=== PATIENT | female | born 1935 | race Caucasian/White ===

== ENCOUNTER 2016-11-10 22:12 | Emergency (ER) | payer OTHER ==
[~2016-11-10] VITALS: Ht 160 cm; Wt 100.0 kg
[~2016-11-10 22:12] MED LIST: ASPI81TA82 PO; HYDR-2768 PO; LOSA100T PO; METO25 PO; RIVA20 PO; SIMV10 PO; SPIR25TA PO
[2016-11-10 22:18] VITALS: BP 116/82; PULSE 89; RESP 18; TEMP 97.8; O2SAT 100
[2016-11-10 22:21] VITALS: BP 116/82; PULSE 65; RESP 20; O2SAT 94
[2016-11-10] MEDS ORDERED: MORPHINE SULFATE 4 MG/ML INJ IV PUSH ONE (22:30)
[2016-11-10] MEDS ORDERED: SODIUM CHLORIDE 0.9% FLUSH 5 ML FLUSH IVF PRN (22:30)
[2016-11-10] MEDS ORDERED: TRAM50TA PO ×2 (22:34)
[2016-11-10] MEDS ORDERED: XARE15TA PO ×2 (22:34)
[2016-11-10] MEDS ORDERED: METO50TA PO ×2 (22:34)
[2016-11-10] MEDS ORDERED: SIMV10TA PO ×2 (22:34)
[2016-11-10] MEDS ORDERED: TIZA4CAP3 PO ×2 (22:34)
[2016-11-10] MEDS ORDERED: PRED5TAB PO ×2 (22:34)
[2016-11-10] MEDS ORDERED: RANI150T PO ×2 (22:34)
[2016-11-10] MEDS ORDERED: ALLO100T PO ×2 (22:34)
[2016-11-10 23:13] LABS: AUTOMATED NEUTROPHIL # 7.6 TH/MM3 (1.8-7.7); BASOPHIL % 0.4 % (0.0-2.0); EOSINOPHIL % 0.1 % (0.0-4.0); HEMATOCRIT 37.8 % (35.0-46.0); HEMO FLAGS DIFF FINAL; LYMPH % 12.4 % (9.0-44.0); LYMPHOCYTE # 1.2 TH/MM3 (1.0-4.8); MEAN CELL VOLUME 85.3 FL (80.0-100.0); MEAN CORPUSCULAR HEMOGLOBIN 28.5 PG (27.0-34.0); MEAN CORPUSCULAR HGB CONC 33.4 % (32.0-36.0); MONO % 6.2 % (0.0-8.0); NEUT % 80.9 % (16.0-70.0); PLATELET COUNT 125 TH/MM3 (150-450); RED BLOOD COUNT 4.44 MIL/MM3 (4.00-5.30); WHITE BLOOD COUNT 9.4 TH/MM3 (4.0-11.0)
[2016-11-10 23:17] LABS: BACTERIA, URINE RARE /hpf; BLOOD, URINE TRACE (NEG); GLUCOSE,URINE NEG (NEG); KETONE, URINE NEG (NEG); NITRITE,URINE NEG (NEG); PH, URINE 6.5 (5.0-8.5); SQUAMOUS EPITHELIAL CELL URINE <1 /hpf (0-5); URINE COLOR YELLOW (YELLW/STRAW)
[2016-11-10 23:19] LABS: COMMENT (UR) CATH-CULTURE IND; CULTURE IF INDICATED CATH CULTURE IND
[2016-11-10 23:24] LABS: APTT (PATIENT) 32.6 SEC (24.3-30.1); INTERNATIONAL NORMALIZED RATIO 1.4 RATIO; PROTHROMBIN TIME - PATIENT 15.3 SEC (9.8-11.6)
[2016-11-10 23:30] LABS: ANION GAP 7 MEQ/L (5-15); AST (GOT) 57 U/L (15-37); BICARBONATE 28.6 MEQ/L (21.0-32.0); BLOOD UREA NITROGEN 24 MG/DL (7-18); CHLORIDE 100 MEQ/L (98-107); GLOMERULAR FILTRATION RATE 43 ML/MIN (>89); POTASSIUM 4.2 MEQ/L (3.5-5.1); SODIUM (NA) 136 MEQ/L (136-145)
[2016-11-10 23:33] LABS: ALKALINE PHOSPHATASE 79 U/L (45-117); ALT (GPT) 46 U/L (10-53); TOTAL BILIRUBIN ADULT 0.6 MG/DL (0.2-1.0)
--- NOTE | 2016-11-10 23:41 | RADRPT ---
EXAM DATE/TIME: 11/10/2016 23:23 [facility] COMPARISON: No previous studies available for comparison. INDICATIONS : Altered mental status. RADIATION DOSE: 65.08 CTDIvol (mGy) MEDICAL HISTORY : Hypertension. SURGICAL HISTORY : None. ENCOUNTER: Initial ACUITY: 1 day PAIN SCALE: 0/10 LOCATION: cranial TECHNIQUE: Multiple contiguous axial images were obtained of the head. Using automated exposure control and adj ustment of the mA and/or kV according to patient size, radiation dose was kept as low as reasonably a chievable to obtain optimal diagnostic quality images. FINDINGS: There is no evidence for intracranial hemorrhage, mass effect, mass lesions, or edema. The visualize d bony structures appear intact. Moderate degree of brain atrophy is seen. Moderate periventricular white matter changes are seen nonspecific mostly consistent with chronic small vessel ischemic change s. There are no signs of acute infarction for technique. CONCLUSION: Chronic and small vessel ischemic changes without any evidence for acute hemorrhage o r mass effect. Robin Stearns MD on November 10, 2016 at 23:38 Board Certified Radiologist. This report was verified electronically.
[2016-11-10] MEDS ORDERED: cefTRIAXone INJ 1,000 MG in SODIUM CHLORIDE 0.9% INJ 100 ML IV ONE (23:45)
--- NOTE | 2016-11-10 23:46 | RADRPT ---
EXAM DATE/TIME: 11/10/2016 23:26 [facility] COMPARISON: No previous studies available for comparison. INDICATIONS : Bilateral back pain. ORAL CONTRAST: No oral contrast ingested. RADIATION DOSE: 13.40 CTDIvol (mGy) MEDICAL HISTORY : Hypertension. SURGICAL HISTORY : Appendectomy. Hysterectomy.Kyphoplasty.bilateral hip replacement ENCOUNTER: Initial ACUITY: 1 day PAIN SCALE: 8/10 LOCATION: Bilateral Paraspinal TECHNIQUE: Volumetric scanning of the abdomen and pelvis was performed. Using automated exposure control and ad justment of the mA and/or kV according to patient size, radiation dose was kept as low as reasonably achievable to obtain optimal diagnostic quality images. FINDINGS: CT Abdomen: The liver, spleen, pancreas, left kidney, adrenals are unremarkable. There is no evidence for any appreciable pathological adenopathy, free fluid, or bowel obstruction. Approximate 4.9 cm s imple cyst is present in the right kidney. There are old healed rib fractures in the right lower ches t. The gallbladder demonstrates multiple stones without gallbladder wall thickening, or pericholecyst ic fluid. Chronic vascular calcifications are present involving the aorta, iliac arteries without any significant stenosis or aneurysmal dilatations for technique and the aorta measures almost 3 cm in m aximum diameter. Small umbilical fat herniation is identified without evidence of bowel herniation. CT pelvis: There is no evidence for mass, abscess formation, or any significant adenopathy within the pelvis. There are scattered diverticuli mainly in the sigmoid colon without definite signs of divert iculitis. Bilateral total hip arthroplasties are seen. CONCLUSION: Cholelithiasis, right renal cyst and chronic vascular calcifications. Robin Stearns MD on November 10, 2016 at 23:40 Board Certified Radiologist. This report was verified electronically.
--- NOTE | 2016-11-10 23:56 | PD ---
HPI Chief Complaint: Pain: Acute or Chronic Time Seen by Provider: 22:15 Travel History International Travel<30 days: No Contact w/Intl Traveler<30days: No Traveled to known affect area: No History of Present Illness HPI 81-year-old female brought in by ambulance from home for evaluation of altered mental status. The patient lives at home with her who is also 81 years old. The patient's children are present here and time he that throughout the day today the patient did not seem like herself. She has not taken any of her medications which is unusual for her. The patient is complaining of left flank and left lower back pain that radiates around to her left lower abdomen. She reports that this is chronic for her and she has had kyphoplasty on her lumbar spine in the past. No fevers. No vomiting. No urinary symptoms. PFSH Past Medical History Atrial Fibrillation: Yes Cancer: Yes (uterine) High Cholesterol: Yes Diminished Hearing: No Gout: Yes Hypertension: Yes Radiation Therapy: Yes Tetanus Vaccination: < 5 Years Influenza Vaccination: No Past Surgical History Appendectomy: Yes Eye Surgery: Yes (right implant) Hysterectomy: Yes Joint Replacement: Yes (two on left and one on right) Social History Alcohol Use: No Tobacco Use: No Substance Use: No Allergies-Medications (Allergen,Severity, Reaction): Coded Allergies: Shrimp (Unverified Allergy, Severe, Anaphylaxis, 11/10/16) Reported Meds & Prescriptions Reported Meds & Active Scripts Active Reported Tizanidine (Tizanidine HCl) 4 Mg Cap 4 Mg PO HS Metoprolol Tartrate 50 Mg Tab 50 Mg PO BID Simvastatin 10 Mg Tab 10 Mg PO DAILY Allopurinol 100 Mg Tab 100 Mg PO DAILY Tramadol (Tramadol HCl) 50 Mg Tab 100 Mg PO Q6-8HOURS PRN Ranitidine (Ranitidine HCl) 150 Mg Tab 150 Mg PO BID Xarelto (Rivaroxaban) 15 Mg Tab 15 Mg PO DAILY Prednisone 5 Mg Tab 5 Mg PO DAILY Review of Systems Except as stated in HPI: all other systems reviewed are Neg Physical Exam Narrative GENERAL: Well-developed, well-nourished, elderly-appearing female, awake, alert , no acute distress. SKIN: Warm and dry. No rash. HEAD: Atraumatic. Normocephalic. EYES: Pupils equal and round. No scleral icterus. No injection or drainage. ENT: Mucous membranes pink and moist. NECK: Trachea midline. No JVD. CARDIOVASCULAR: Regular rate and rhythm. Distal pulses brisk and equal bilaterally. RESPIRATORY: No accessory muscle use. Clear to auscultation. Breath sounds equal bilaterally. GASTROINTESTINAL: Abdomen soft, nondistended. Mild left mid and left lower quadrant tenderness without rebound or guarding. Rest of abdomen is soft and nontender. Normal bowel sounds. MUSCULOSKELETAL: No obvious deformities. No clubbing. No cyanosis. No edema. No midline vertebral step-off or tenderness. There is mild left CVA tenderness. No right CVA tenderness. NEUROLOGICAL: Awake and alert. No obvious cranial nerve deficits. Motor grossly within normal limits. Normal speech. No saddle anesthesia. Great toe extension present bilaterally. Normal motor/sensory to bilateral upper and lower extremities. PSYCHIATRIC: Appropriate mood and affect; insight and judgment normal. Data Data Last Documented VS Vital Signs Date Time Temp Pulse Resp B/P Pulse Ox O2 Delivery O2 Flow Rate FiO2 11/10/16 23:58 98.1 87 18 122/59 100 Room Air Orders Complete Blood Count With Diff (11/10/16 22:22) Comprehensive Metabolic Panel (11/10/16 22:22) Lipase (11/10/16 22:22) Lactic Acid (11/10/16 22:22) Prothrombin Time / Inr (Pt) (11/10/16 22:22) Act Partial Throm Time (Ptt) (11/10/16 22:22) Urinalysis - C+S If Indicated (11/10/16 22:22) Ct Abd/Pel W/O Iv Contrast (11/10/16 22:22) Iv Access Insert/Monitor (11/10/16 22:22) Ecg Monitoring (11/10/16 22:22) Oximetry (11/10/16 22:22) Morphine Inj (Morphine Inj) (11/10/16 22:30) Sodium Chloride 0.9% Flush (Ns Flush) (11/10/16 22:30) Ct Lumb Spine W/O Contrast (11/10/16 ) Cath For Specimen (11/10/16 22:22) Ct Brain W/O Iv Contrast(Rout) (11/10/16 ) Urine Culture (11/10/16 22:47) Ceftriaxone Inj (Rocephin Inj) (11/10/16 23:45) Labs Laboratory Tests Test 11/10/16 11/10/16 22:45 22:47 White Blood Count 9.4 TH/MM3 Red Blood Count 4.44 MIL/MM3 Hemoglobin 12.6 GM/DL Hematocrit 37.8 % Mean Corpuscular Volume 85.3 FL Mean Corpuscular Hemoglobin 28.5 PG Mean Corpuscular Hemoglobin 33.4 % Concent Red Cell Distribution Width 16.0 % Platelet Count 125 TH/MM3 Mean Platelet Volume 9.3 FL Neutrophils (%) (Auto) 80.9 % Lymphocytes (%) (Auto) 12.4 % Monocytes (%) (Auto) 6.2 % Eosinophils (%) (Auto) 0.1 % Basophils (%) (Auto) 0.4 % Neutrophils # (Auto) 7.6 TH/MM3 Lymphocytes # (Auto) 1.2 TH/MM3 Monocytes # (Auto) 0.6 TH/MM3 Eosinophils # (Auto) 0.0 TH/MM3 Basophils # (Auto) 0.0 TH/MM3 CBC Comment DIFF FINAL Differential Comment Prothrombin Time 15.3 SEC Prothromb Time International 1.4 RATIO Ratio Activated Partial 32.6 SEC Thromboplast Time Sodium Level 136 MEQ/L Potassium Level 4.2 MEQ/L Chloride Level 100 MEQ/L Carbon Dioxide Level 28.6 MEQ/L Anion Gap 7 MEQ/L Blood Urea Nitrogen 24 MG/DL Creatinine 1.21 MG/DL Estimat Glomerular Filtration 43 ML/MIN Rate Random Glucose 126 MG/DL Lactic Acid Level 1.4 mmol/L Calcium Level 8.0 MG/DL Total Bilirubin 0.6 MG/DL Aspartate Amino Transf 57 U/L (AST/SGOT) Alanine Aminotransferase 46 U/L (ALT/SGPT) Alkaline Phosphatase 79 U/L Total Protein 6.3 GM/DL Albumin 3.0 GM/DL Lipase 64 U/L Urine Color YELLOW Urine Turbidity HAZY Urine pH 6.5 Urine Specific [place] 1.006 Urine Protein TRACE mg/dL Urine Glucose (UA) NEG mg/dL Urine Ketones NEG mg/dL Urine Occult Blood TRACE Urine Nitrite NEG Urine Bilirubin NEG Urine Urobilinogen LESS THAN 2.0 MG/DL Urine Leukocyte Esterase LARGE Urine RBC 2 /hpf Urine WBC 172 /hpf Urine WBC Clumps FEW Urine Squamous Epithelial <1 /hpf Cells Urine Bacteria RARE /hpf Microscopic Urinalysis Comment CATH-CULTURE IND MDM Medical Decision Making Medical Screen Exam Complete: Yes Emergency Medical Condition: Yes Differential Diagnosis Pyelonephritis, nephrolithiasis, UTI, cystitis, diverticulitis, appendicitis, spinal cord compression unlikely Narrative Course Vital signs reviewed. CBC is is remarkable for neutrophils 80.9%, platelets 125, otherwise unremarkable CMP is remarkable for BUN 24, creatinine 1.2, GFR 43, otherwise unremarkable. Lactic acid is 1.4. UA suggestive of UTI. The patient was given a dose of Rocephin. CT head shows chronic and small vessel ischemic changes without any evidence for acute hemorrhage or mass effect. CT abdomen pelvis shows cholelithiasis, right renal cyst and chronic vascular calcifications. CT lumbar spine shows slight neural foramina compromise on the left L1 to L2, L2 to L3, and right L3 to L4 without any significant thecal sac stenosis. The patient and the patient's family were made aware of all findings. The patient reports feeling much better than she did earlier today. There are no focal neurologic findings on exam. She is awake and alert and oriented to person, place, and time. She would like to be discharged home. I believe she is stable for discharge home and believe that her symptoms are secondary to her urinary tract infection. She was given a dose of Rocephin and will be discharged home with a prescription for Cipro. PMD follow-up this week. The patient was informed on when to return to the emergency department. Both patient and the patient's family verbalized understanding and agreement with plan. Diagnosis Primary Impression: Urinary tract infection Qualified Code: N39.0 - Urinary tract infection with hematuria, site unspecified Referrals: Primary Care Physician 3 days Additional Instructions: Follow-up with your primary care physician this week. Take antibiotic as prescribed. Return to the emergency department for worsening symptoms or any other concerns. Scripts Ciprofloxacin (Cipro)500 Mg Plc497 Mg PO BID 7 Days Ref 0 Prov:Viktor Crisostomo MD 11/11/16 Disposition: 01 DISCHARGE HOME Condition: Stable Viktor Crisostomo MD Nov 10, 2016 23:56
[2016-11-10 23:58] VITALS: BP 122/59; PULSE 87; RESP 18; TEMP 98.1; O2SAT 100
--- NOTE | 2016-11-11 00:08 | RADRPT ---
EXAM DATE/TIME: 11/10/2016 23:26 [facility] COMPARISON: No previous studies available for comparison. INDICATIONS : Lower back pain. RADIATION DOSE: ; Reconstructed from previous dataset MEDICAL HISTORY : Hypertension. SURGICAL HISTORY : Appendectomy. Hysterectomy.Kyphoplasty. ENCOUNTER: Initial ACUITY: 1 day PAIN SCALE: 8/10 LOCATION: Paraspinal TECHNIQUE: Volumetric scanning of the lumbar spine was performed. Multiplanar reconstructions in the sagittal, coronal and oblique axial planes were performed. Using automated exposure control and adjustment of the mA and/or kV according to patient size, radiation dose was kept as low as reasonably achievable t o obtain optimal diagnostic quality images. FINDINGS: Slight to moderate degenerative changes are seen within the disc space and facets at multiple levels. There is evidence for prior vertebroplasty of T10, T11 and T12 with anterior wedging of these verteb radha chronic in nature. There are old healed rib fractures in the right lower chest in addition to old fracture of right L1 transverse process. T12-L1: Slight bulging disc and hypertrophic changes are seen with indentation on the thecal sac and no signi ficant compromise to the thecal sac or the exiting nerve roots. L1-L2: There is slight neural foramina compromise on the left due to asymmetrical bulging disc and hypertrop hic changes. There is effacement of the anterior CSF space due to chronic hypertrophic changes, some degree of bulging disc with compromise to the anterior CSF space, however overall no significant thec al sac stenosis is seen. L2-L3: There is slight neural foramina compromise on the left due to asymmetrical bulging disc and hypertrop hic changes. There is effacement of the anterior CSF space due to chronic hypertrophic changes, some degree of bulging disc with compromise to the anterior CSF space, however overall no significant thec al sac stenosis is seen. L3-L4: There is slight neural foramina compromise on the right due to asymmetrical bulging disc and hypertro phic changes. Slight bulging disc and hypertrophic changes are seen with indentation on the thecal sa c and no significant compromise to the thecal sac. L4-L5: Slight bulging disc and hypertrophic changes are seen with indentation on the thecal sac and no signi ficant compromise to the thecal sac or the exiting nerve roots. L5-S1: There is no evidence for any significant compromise to the thecal sac, or the exiting nerve roots. N o appreciable thecal sac stenosis is seen. The neural foramina and lateral recess appear patent bila terally. CONCLUSION: Slight neural foramina compromise left L1-L2, left L2-L3, right L3-L4 without any sig nificant thecal sac stenosis. Robin Stearns MD on November 11, 2016 at 0:03 Board Certified Radiologist. This report was verified electronically.
[2016-11-11 00:27] VITALS: BP 117/65; PULSE 72; RESP 18; TEMP 98.1; O2SAT 96
[2016-11-11] MEDS ORDERED: CIPR-9 PO (00:29)
[2016-11-12] MEDS ORDERED: AMOX250C3 PO (10:24)
== END 2016-11-11 00:52 | disposition home or self-care (01) ==
LOC: NEPE 22:12
DX: N39.0 Urinary tract infection, site not specified (principal); I48.91 Unspecified atrial fibrillation; E78.00 Pure hypercholesterolemia, unspecified; I10 Essential (primary) hypertension; Z87.39 Personal history of other diseases of the musculoskeletal system and connective tissue; Z85.42 Personal history of malignant neoplasm of other parts of uterus
CPT/HCPCS: 70450; 72131; 74176; 80053; 81001; 83605; 83690; 85025; 85610; 85730; 87077; 87086; 87186; 96374; 99285; J0696

== ENCOUNTER 2016-11-11 02:45 | Observation (INO) | payer OTHER ==
[2016-11-11] VITALS (8 sets, daily range): BP systolic 106–172; BP diastolic 56–95; PULSE 62–82; RESP 16–24; TEMP 97.9–98.9; O2SAT 94–98
[~2016-11-11] VITALS: Ht 154.9 cm; Wt 100.0 kg
[~2016-11-11 02:45] MED LIST changes: +ALLO100T PO; +CIPR-9 PO; +METO50TA PO; +PRED5TAB PO; +RANI150T PO; +SIMV10TA PO; +TIZA4CAP3 PO; +TRAM50TA PO; +XARE15TA PO
[2016-11-11] MEDS ORDERED: ACETAMINOPHEN 325 MG TAB PO PRN (03:00)
[2016-11-11] MEDS ORDERED: ONDANSETRON HCL 4 MG/2 ML VIAL IV PRN (03:00)
[2016-11-11] MEDS ORDERED: SODIUM CHLORIDE 0.9% FLUSH 5 ML FLUSH IVF PRN (03:00)
[2016-11-11] MEDS ORDERED: ACETAMINOPHEN 650 MG SUPP PR PRN (03:00)
--- NOTE | 2016-11-11 03:08 | PD ---
HPI Chief Complaint: Altered Mental Status Time Seen by Provider: 02:45 Travel History International Travel<30 days: No Contact w/Intl Traveler<30days: No Traveled to known affect area: No History of Present Illness HPI The patient is a 81-year-old female who presents emergency department with family for altered mental status. The family states the patient was evaluated in the emergency department earlier tonight and was diagnosed with urinary tract infection. The patient was discharged home, feeling well. However, the patient returned home and took some medications at home including tramadol. The patient then had altered mental status again. The family states that the patient appeared altered, they were barely able to get the patient and out of the car, and her "eyes rolled up behind her head at one time ". Upon arrival the patient is more awake and alert according to the family is able to answer questions. The patient denies any physical complaints except for chronic back pain for which she takes tramadol. Patient denies any headache, neck pain, chest pain, shortness breath, nausea, vomiting, or current abdominal pain. Symptoms are moderate, possibly exacerbated by underlying urinary tract infection and tramadol, and self alleviating. PFSH Past Medical History Atrial Fibrillation: Yes Cancer: Yes (uterine) High Cholesterol: Yes Diminished Hearing: No Gout: Yes Hypertension: Yes Radiation Therapy: Yes Past Surgical History Appendectomy: Yes Eye Surgery: Yes (right implant) Hysterectomy: Yes Joint Replacement: Yes (two on left and one on right) Social History Alcohol Use: No Tobacco Use: No Substance Use: No Allergies-Medications (Allergen,Severity, Reaction): Coded Allergies: Shrimp (Unverified Allergy, Severe, Anaphylaxis, 11/10/16) Reported Meds & Prescriptions Reported Meds & Active Scripts Active Cipro (Ciprofloxacin HCl) 500 Mg Tab 500 Mg PO BID 7 Days Reported Tizanidine (Tizanidine HCl) 4 Mg Cap 4 Mg PO HS Metoprolol Tartrate 50 Mg Tab 50 Mg PO BID Simvastatin 10 Mg Tab 10 Mg PO DAILY Allopurinol 100 Mg Tab 100 Mg PO DAILY Tramadol (Tramadol HCl) 50 Mg Tab 100 Mg PO Q6-8HOURS PRN Ranitidine (Ranitidine HCl) 150 Mg Tab 150 Mg PO BID Xarelto (Rivaroxaban) 15 Mg Tab 15 Mg PO DAILY Prednisone 5 Mg Tab 5 Mg PO DAILY Review of Systems Except as stated in HPI: all other systems reviewed are Neg General / Constitutional: No: Fever HENT: No: Lightheadedness Cardiovascular: No: Chest Pain or Discomfort Respiratory: No: Shortness of Breath Gastrointestinal: No: Nausea, Vomiting, Abdominal Pain Genitourinary: No: Dysuria Musculoskeletal: Positive: Weakness, Other (chronic back pain) Neurologic: Positive: Change in Mentation Physical Exam Narrative GENERAL: Awake, alert, pleasant 81-year-old female who appears her stated age is in no acute respiratory distress. SKIN: Warm and dry. HEAD: Atraumatic. Normocephalic. EYES: Pupils equal and round. Pupils are 3 mm bilateral reactive. ENT: No nasal bleeding or discharge. Mildly dry mucous membranes. NECK: Trachea midline. No JVD. CARDIOVASCULAR: Regular rate and rhythm. No murmur appreciated. RESPIRATORY: No accessory muscle use. Clear to auscultation. Breath sounds equal bilaterally. GASTROINTESTINAL: Abdomen soft, obese, no rebound tenderness. MUSCULOSKELETAL: No obvious deformities. No clubbing. No cyanosis. No edema. NEUROLOGICAL: Awake and alert. No obvious cranial nerve deficits. Motor grossly within normal limits. Normal speech. No drift of the upper or lower extremities. Patient is able to ambulate with assistance. Patient is oriented to [facility], [facility], and family members. However, she thought she was located in [place], [place]. Patient also did not know the month. PSYCHIATRIC: Appropriate mood and affect; insight and judgment normal. Data Data Last Documented VS Vital Signs Date Time Temp Pulse Resp B/P Pulse Ox O2 Delivery O2 Flow Rate FiO2 11/11/16 02:51 98.9 74 16 106/56 96 Room Air Orders Sodium Chlor 0.9% 1000 Ml Inj (Ns 1000 M (11/11/16 03:00) Admit Order (Ed Use Only) (11/11/16 02:59) Vital Signs (Adult) Q4H (11/11/16 03:00) Diet Heart Healthy (11/11/16 Breakfast) Activity Oob With Assistance (11/11/16 03:00) ^ Saline Lock (11/11/16 03:00) Resp Oxygen Carlito C Titrat 1-4 L (11/11/16 ) ^ Notify Dr: Other (11/11/16 03:00) Ondansetron Inj (Zofran Inj) (11/11/16 03:00) Acetaminophen (Tylenol) (11/11/16 03:00) Acetaminophen Supp (Tylenol Supp) (11/11/16 03:00) Neuro Checks . ORDERED (11/11/16 03:00) Sodium Chloride 0.9% Flush (Ns Flush) (11/11/16 09:00) Sodium Chloride 0.9% Flush (Ns Flush) (11/11/16 03:00) Basic Metabolic Panel (Bmp) (11/11/16 06:00) Complete Blood Count With Diff (11/11/16 06:00) [facility] Medical Decision Making Medical Screen Exam Complete: Yes Emergency Medical Condition: Yes Medical Record Reviewed: Yes Differential Diagnosis Differential diagnosis includes delirium, UTI, pneumonia, troponin hemorrhage, hyponatremia, metabolic encephalopathy, hypoglycemia. Narrative Course I reviewed the patient's EMR from her visit several hours ago. The patient had a CT the brain was negative, CT of the lumbar spine which revealed previous kyphoplasty, and CT the abdomen and pelvis which was unremarkable. Patient's UA was positive for infection, electrolytes are unremarkable. The patient appears to have a UTI with secondary delirium, most likely exacerbated by UTI and tramadol. The family was uncomfortable taking the patient home as she is had multiple episodes of altered mental status. Therefore, patient will be 23 hour observation. The patient has [employer], therefore, I discussed the patient with Dr. Greer who agrees with 23 hour observation. The patient will receive IV fluids and neurochecks every 4 hours. Physician Communication Physician Communication I discussed the patient with Dr. Greer who agrees with 23 hour observation. Diagnosis Primary Impression: Delirium Additional Impression: Urinary tract infection Qualified Code: N30.00 - Acute cystitis without hematuria Admitting Information Admitting Physician Requests: Observation Condition: Stable Danny Perez MD Nov 11, 2016 03:08
[2016-11-11] MEDS: SODIUM CHLOR 0.9% 1000 ML INJ 1,000 ML IV SCH ×3 (05:46→23:22)
[2016-11-11] MEDS ORDERED: SODIUM CHLORIDE 0.9% FLUSH 5 ML FLUSH FLUSH PRN (06:15)
[2016-11-11] MEDS ORDERED: NALOXONE HCL 0.4 MG/ML AMP IV PRN (06:15)
[2016-11-11] MEDS ORDERED: PILL SPLITTER OTHER PRN (06:30)
[2016-11-11 06:50] LABS: BASOPHIL % 0.3 % (0.0-2.0); EOSINOPHIL % 0.4 % (0.0-4.0); HEMATOCRIT 38.2 % (35.0-46.0); HEMO FLAGS DIFF FINAL; LYMPH % 13.8 % (9.0-44.0); LYMPHOCYTE # 1.4 TH/MM3 (1.0-4.8); MEAN CELL VOLUME 84.8 FL (80.0-100.0); MEAN CORPUSCULAR HEMOGLOBIN 28.1 PG (27.0-34.0); MEAN CORPUSCULAR HGB CONC 33.2 % (32.0-36.0); MONO % 8.1 % (0.0-8.0); NEUT % 77.4 % (16.0-70.0); PLATELET COUNT 125 TH/MM3 (150-450); RED BLOOD COUNT 4.51 MIL/MM3 (4.00-5.30); RED CELL DISTRIBUTION WIDTH 15.9 % (11.6-17.2); WHITE BLOOD COUNT 10.3 TH/MM3 (4.0-11.0)
[2016-11-11 07:08] LABS: BICARBONATE 30.4 MEQ/L (21.0-32.0)
[2016-11-11] MEDS ORDERED: SODIUM CHLORIDE 0.9% FLUSH 5 ML FLUSH IVF SCH (09:00)
[2016-11-11] MEDS: SODIUM CHLORIDE 0.9% FLUSH 5 ML FLUSH FLUSH SCH ×2 (09:46→21:00)
--- NOTE | 2016-11-11 10:45 | HHI.HP ---
[facility] Kaci Guzman MD Admission Diagnosis delirium, UTI, altered mental status Diagnoses: Chief Complaint: AMS Travel History International Travel<30 Days: No Contact w/Intl Traveler <30 Da: No Traveled to Known Affected Are: No History of Present Illness 81-year-old female with history of atrial fibrillation, uterine cancer s/p radiation/hysterectomy, HTN, HLD, gout, presents with altered mental status 2 days. The patient is currently AAO 4, however not the best historian, daughter at bedside who assists with the history. Yesterday 11/10/16, the patient reports she just didn't feel like herself. She states she didn't take her medications all day which is unusual for her. She also had increased lower back pain, no recent fall, but has history of kyphoplasty and has been taking Tramadol for pain. Per family, she then had an episode where she was unresponsive however was belly breathing, and [facility] was called. She was seen in the ER on 11/10, extensive work up included a head CT with no acute changes; CT abdomen/pelvis showed cholelithiasis, right renal cysts, no acute findings; CT lumbar spine showed slight neural foraminal compromise on the left L1-L3, and right L3-4 without significant stenosis. CBC and BMP essentially unremarkable. Urinalysis positive for UTI, she was discharged home on Cipro around 1 AM this morning 11/11. Within a few hours of being home with family, the patient states she just did not feel right, did not feel like she should be at home and belonged in the hospital, therefore she came back to the ER. Per ER MD note, the family could hardly get her out of the car and her eyes rolled in the back of her head at some point. Denies any history of seizures. The daughter at bedside was not the same family member who was with her early this morning when she came back to the ER therefore this history is limited. The patient is starting to feel back to herself, she is now AAOx4, no further episodes, daughter at bedside agrees she looks better. Review of Systems Constitutional: DENIES: Fever, Chills, Dizziness Endocrine: DENIES: Polydipsia, Polyuria, Polyphagia Eyes: DENIES: Blurred vision, Vision loss, Double Vision Ears, nose, mouth, throat: DENIES: Throat pain, Ear Pain, Running Nose, Odynophagia Respiratory: DENIES: Cough, Shortness of breath Cardiovascular: DENIES: Chest pain, Palpitations Gastrointestinal: DENIES: Abdominal pain, Constipation, Diarrhea, Nausea, Vomiting Genitourinary: COMPLAINS OF: Urinary incontinence, DENIES: Urinary frequency, Urgency, Dysuria Musculoskeletal: DENIES: Back pain, Neck pain Integumentary: DENIES: Pruritus, Rash Hematologic/lymphatic: DENIES: Bruising, Lymphadenopathy Immunologic/allergic: DENIES: Eczema, Urticaria Neurologic: DENIES: Abnormal gait, Headache, Localized weakness, Paresthesias Psychiatric: DENIES: Anxiety, Depression Past Family Social History Past Medical History atrial fibrillation uterine cancer s/p radiation/hysterectomy HTN HLD gout acid reflux chronic back pain Past Surgical History Appendectomy R eye implant Hysterectomy Joint replacement (hip) Kyphoplasty Reported Medications Active Cipro (Ciprofloxacin HCl) 500 Mg Tab 500 Mg PO BID 7 Days Reported Tizanidine (Tizanidine HCl) 4 Mg Cap 4 Mg PO HS Metoprolol Tartrate 50 Mg Tab 50 Mg PO BID Simvastatin 10 Mg Tab 10 Mg PO DAILY Allopurinol 100 Mg Tab 100 Mg PO DAILY Tramadol (Tramadol HCl) 50 Mg Tab 100 Mg PO Q6-8HOURS PRN Ranitidine (Ranitidine HCl) 150 Mg Tab 150 Mg PO BID Xarelto (Rivaroxaban) 15 Mg Tab 15 Mg PO DAILY Prednisone 5 Mg Tab 5 Mg PO DAILY Allergies: Coded Allergies: Shrimp (Unverified Allergy, Severe, Anaphylaxis, 11/11/16) Active Ordered Medications Current Medications Medications (Trade) Dose Ordered Sig/Avery Route Start Time Stop Time Status Last Admin (NS 1000 ml Inj) 1,000 ml @ 84 mls/hr [id number] IV 11/11/16 03:00 11/11/16 05:46 (Zofran Inj) 4 mg Q6H PRN IV 11/11/16 03:00 (Tylenol) 650 mg Q4H PRN PO 11/11/16 03:00 (Tylenol Supp) 650 mg Q4H PRN AL 11/11/16 03:00 (Zyloprim) 100 mg DAILY PO 11/11/16 09:00 11/11/16 11:26 (Lopressor) 50 mg BID PO 11/11/16 09:00 11/11/16 11:25 (Deltasone) 5 mg DAILY PO 11/11/16 09:00 11/11/16 11:26 (Pepcid) 10 mg BID PO 11/11/16 09:00 11/11/16 11:25 (Xarelto) 15 mg DAILY PO 11/11/16 09:00 11/11/16 11:26 (Pravachol) 20 mg DAILY PO 11/11/16 09:00 11/11/16 11:25 (NS Flush) 2 ml UNSCH PRN FLUSH 11/11/16 06:15 (NS Flush) 2 ml BID FLUSH 11/11/16 09:00 11/11/16 09:46 (Narcan Inj) 0.4 mg UNSCH PRN IV 11/11/16 06:15 Miscellaneous 1 ea 1 ea UNSCH PRN OTHER 11/11/16 06:30 (Rocephin Inj/NS Inj) 100 ml @ 200 mls/hr Q24H IV 11/11/16 23:00 (Ultram) 50 mg Q6H PRN PO 11/11/16 12:00 Family History Mother with CVA Social History Denies any tobacco, alcohol, or illicit drug use. Lives with her who is also elderly. Has multiple local family members involved in her care. Physical Exam Vital Signs Vital Signs Date Time Temp Pulse Resp B/P Pulse Ox O2 Delivery O2 Flow Rate FiO2 11/11/16 07:59 98.0 68 24 135/73 97 Room Air 11/11/16 05:40 62 18 172/82 96 Room Air 11/11/16 02:51 98.9 74 16 106/56 96 Room Air Physical Exam GENERAL: Well-nourished, well-developed pleasant elderly female patient in [facility]. SKIN: Warm and dry. No rash. HEAD: Normocephalic. Atraumatic. EYES: Pupils equal and round. No scleral icterus. No injection or drainage. ENT: No nasal bleeding or discharge. Mucous membranes pink and moist. NECK: Supple. Trachea midline. CARDIOVASCULAR: Regular rate and rhythm. S1, S2 noted. No murmur appreciated. RESPIRATORY: No accessory muscle use. Clear to auscultation. Breath sounds equal bilaterally. GASTROINTESTINAL: Abdomen soft, non-tender, nondistended. Normoactive bowel sounds x4. MUSCULOSKELETAL: No obvious deformities. Extremities without clubbing, cyanosis , or edema. NEUROLOGICAL: Awake and alert. No obvious cranial nerve deficits. Motor grossly within normal limits. 5/5 muscle strength in bilateral upper and lower extremities. Normal speech. PSYCHIATRIC: Mildly anxious; insight and judgment normal. Laboratory Laboratory Tests Test 11/11/16 06:00 White Blood Count 10.3 Red Blood Count 4.51 Hemoglobin 12.7 Hematocrit 38.2 Mean Corpuscular Volume 84.8 Mean Corpuscular Hemoglobin 28.1 Mean Corpuscular Hemoglobin 33.2 Concent Red Cell Distribution Width 15.9 Platelet Count 125 Mean Platelet Volume 9.3 Neutrophils (%) (Auto) 77.4 Lymphocytes (%) (Auto) 13.8 Monocytes (%) (Auto) 8.1 Eosinophils (%) (Auto) 0.4 Basophils (%) (Auto) 0.3 Neutrophils # (Auto) 8.0 Lymphocytes # (Auto) 1.4 Monocytes # (Auto) 0.8 Eosinophils # (Auto) 0.0 Basophils # (Auto) 0.0 CBC Comment DIFF FINAL Differential Comment Sodium Level 136 Potassium Level 4.0 Chloride Level 100 Carbon Dioxide Level 30.4 Anion Gap 6 Blood Urea Nitrogen 24 Creatinine 1.10 Estimat Glomerular Filtration 48 Rate Random Glucose 85 Calcium Level 8.3 Result Diagram: 11/11/16 0600 11/11/16 0600 Assessment and Plan Assessment and Plan 81-year-old female with history of atrial fibrillation, uterine cancer s/p radiation/hysterectomy, HTN, HLD, gout, presents with altered mental status 2 days. Toxic and Metabolic Encephalopathy: suspect multifactorial with UTI in combination with Tramadol use. Rule out other etiologies. Head CT 11/10 with no acute changes. CT abdomen/pelvis showed cholelithiasis, right renal cysts, no acute findings. CT lumbar spine showed slight neural foraminal compromise on the left L1-L3, and right L3-4 without significant stenosis. CBC and BMP essentially unremarkable. Treat UTI. Check EEG. Neuro checks. Limit narcotic use. Consult PT. Overall improving. UTI: UA with large leuks, WBCs, bacteria. Continue on IV Rocephin for now. Preliminary urine culture with gram negative rods. Monitor final C&S. Chronic Low Back Pain: with hx of kyphoplasty. Continue tramadol prn. PT consult. Atrial Fibrillation: chronic, continue patient's metoprolol and Xarelto. HTN/HLD: chronic, continue patient's metoprolol and statin. Gout: chronic, continue patient's allopurinol. DVT Prophylaxis: on Xarelto Written by Barbi Rosa, acting as scribe for Dr. Bullock on 11/11/16 at 10: 45. The documentation accurately reflects the work performed [id number] by me on at 1045 Code Status Alternative Code: patient undecided on intubation at this time therefore will intubate if necessary, however patient wishes to be DNR in regards to shock/ compression/ACLS drugs. Discussed Condition With Patient, patient's daughter, TENONER OPERATORBarbi Nicole PA-C Nov 11, 2016 10:45 Hilario Bullock MD Nov 11, 2016 17:10
[2016-11-11] MEDS: FAMOTIDINE 20 MG TAB PO SCH ×2 (11:25→21:24)
[2016-11-11] MEDS: METOPROLOL TARTRATE 50 MG TAB PO SCH ×2 (11:25→21:00)
[2016-11-11] MEDS: PRAVASTATIN SOD 20 MG TAB PO SCH (11:25)
[2016-11-11] MEDS: RIVAROXABAN 15 MG TAB PO SCH (11:26)
[2016-11-11] MEDS: ALLOPURINOL 100 MG TAB PO SCH (11:26)
[2016-11-11] MEDS: predniSONE 5 MG TAB PO SCH (11:26)
[2016-11-11] MEDS ORDERED: traMADol HCL 50 MG TAB PO PRN (12:00)
--- NOTE | 2016-11-11 17:06 | MG ---
cc: KERMIT MACK MD Lab No: [id number] Date: 11/11/2016 Age: 81 Sex: F Race: DATE OF : 1935. HISTORY: An 81-year-old female with history of mental status changes. DESCRIPTION OF RECORD: Excessive myogenic artifact initially left frontotemporal region cleared up. Posterior rhythm then demonstrates 4 to 5 Hz activity 20-50 microvolts with bursts of 2-3 Hz delta. Synchronous waveforms. Good EEG variability reactivity. Overall limited driving with photic stimulation. Single lead EKG showing sinus rhythm. No epileptic activity noted. INTERPRETATION: Mild encephalopathy and sleep state. Clinical correlation. Kermit Mack MD /Charlene /4:54 PM /5:02 PM
[2016-11-11] MEDS ORDERED: cefTRIAXone INJ 1,000 MG in SODIUM CHLORIDE 0.9% INJ 100 ML IV SCH (23:00)
[2016-11-12 05:00] VITALS: BP 136/63; PULSE 86; RESP 18; TEMP 97.9; O2SAT 94
[2016-11-12 05:57] LABS: BICARBONATE 25.2 MEQ/L (21.0-32.0); MAGNESIUM 1.7 MG/DL (1.5-2.5); POTASSIUM 5.4 MEQ/L (3.5-5.1)
[2016-11-12] MEDS ORDERED: SODIUM POLYSTYRENE SULFONATE SUSP 15 GM/60 ML CUP PO ONE (06:15)
[2016-11-12 08:00] VITALS: BP 142/74; PULSE 91; RESP 20; TEMP 98.8; O2SAT 96
[2016-11-12 08:18] VITALS: O2SAT 95
[2016-11-12] MEDS: METOPROLOL TARTRATE 50 MG TAB PO SCH (10:00)
[2016-11-12] MEDS: FAMOTIDINE 20 MG TAB PO SCH (10:00)
[2016-11-12] MEDS: PRAVASTATIN SOD 20 MG TAB PO SCH (10:01)
[2016-11-12] MEDS: RIVAROXABAN 15 MG TAB PO SCH (10:01)
[2016-11-12] MEDS: ALLOPURINOL 100 MG TAB PO SCH (10:01)
[2016-11-12] MEDS: predniSONE 5 MG TAB PO SCH (10:01)
[2016-11-12] MEDS: SODIUM CHLORIDE 0.9% FLUSH 5 ML FLUSH FLUSH SCH (10:06)
--- NOTE | 2016-11-12 10:17 | HHI.PR ---
Subjective Remarks Follow-up for altered mental status. The patient remains awake and alert today. She has no specific medical complaints. She did feel cold last night. No fevers. Denies any back pain. Objective Vitals Vital Signs Date Time Temp Pulse Resp B/P Pulse Ox O2 Delivery O2 Flow Rate FiO2 11/12/16 08:18 95 21 11/12/16 05:00 97.9 86 18 136/63 94 11/11/16 23:43 98.0 80 19 115/80 96 11/11/16 21:19 98.1 82 19 110/59 94 11/11/16 14:33 97.9 81 20 139/95 95 11/11/16 11:42 75 22 150/68 95 Room Air 11/11/16 11:30 73 22 141/74 98 Room Air Result Diagram: 11/11/16 0600 11/12/16 0512 Objective Remarks GENERAL: Well-developed well-nourished. In no acute distress. SKIN: Warm and dry. No lesions noted. HEENT: Normocephalic. Pupils equal and round. Mucous membranes pink and moist. CARDIOVASCULAR: Regular rate and rhythm. No murmur appreciated. RESPIRATORY: No accessory muscle use. Clear to auscultation. Breath sounds equal bilaterally. GASTROINTESTINAL: Abdomen soft, non-tender, nondistended. Bowel sounds x4. MUSCULOSKELETAL: No obvious deformities. No clubbing or cyanosis. No edema. NEUROLOGICAL: Awake and alert. No focal neurological deficits. Moves upper and lower extremities spontaneously. Normal speech. PSYCHIATRIC: Appropriate mood and affect; insight and judgment normal. A/P Problem List: (1) Delirium ICD Code: R41.0 Status: Resolved (2) Urinary tract infection ICD Code: N39.0 Status: Acute Assessment and Plan 81-year-old female with history of atrial fibrillation, uterine cancer s/p radiation/hysterectomy, HTN, HLD, gout, presents with altered mental status 2 days. Toxic and Metabolic Encephalopathy: suspect multifactorial with UTI in combination with Tramadol use. Rule out other etiologies. Head CT 11/10 with no acute changes. CT abdomen/pelvis showed cholelithiasis, right renal cysts, no acute findings. CT lumbar spine showed slight neural foraminal compromise on the left L1-L3, and right L3-4 without significant stenosis. CBC and BMP essentially unremarkable. EEG showed mild encephalopathy with no epileptic activity noted. Treat UTI as below. Neuro checks. Limit narcotic use, stopped tizanidine. Consulted PT, will arrange for HHC. Improved. UTI: UA with large leuks, WBCs, bacteria. Urine culture growing pansensitive Escherichia coli. Received IV Rocephin, change to oral antibiotics and DC. Chronic Low Back Pain: with hx of kyphoplasty. Continue tramadol prn. PT consult as above. Atrial Fibrillation: chronic, continue patient's metoprolol and Xarelto. HTN/HLD: chronic, continue patient's metoprolol and statin. Gout: chronic, continue patient's allopurinol. Mild hyperkalemia. Kayexalate 1. DVT Prophylaxis: on Xarelto Written by Moisés Amin, acting as scribe for Dr. Bullock on 11/12/16 at 10:16. The documentation accurately reflects the work performed [id number] by me on at 1016. Discharge Planning Discharge patient to home with C Condition on discharge: Improved Heart healthy Diet as tolerated Regular activity Rx written: Amoxicillin Follow-up with primary care physician Problem Qualifiers (1) Urinary tract infection: Qualified Code: N30.00 - Acute cystitis without hematuria Moisés Amin Nov 12, 2016 10:16 Hilario Bullock MD Nov 12, 2016 15:21
--- NOTE | 2016-11-12 10:21 | HHI.FF ---
Face to Face Verification Diagnosis: (1) Urinary tract infection (2) Delirium (3) Hx of kyphoplasty Physical Therapy Order: Evaluate and Treat, Improve ambulation, Strength and gait training Home Health Nursing Order: Medical education Signs/symptoms of disease process Medication education-adverse effect Nursing assessment with vital signs I have seen patient Marlene Pretty on 11/12/16. My clinical findings support the need for the requested home health care services because: Ltd mobility - disease progression Deconditioned w/ increased weakness Limited ability to care for self Infection w/ risk of complications I certify that my clinical findings support that this patient is homebound because: Post-op weakness Unsteady gait/balance Moisés Amin Nov 12, 2016 10:21
[2016-11-12] MEDS ORDERED: AMOX250C3 PO (10:24)
== END 2016-11-12 13:14 | disposition home or self-care (01) ==
LOC: NEPC 02:45 → NEDA 03:01 → NEDH 06:51 → NEPHCDU 14:04
PROVIDERS: ADMIT Internal Medicine; ATTEND Internal Medicine
DX: N30.00 Acute cystitis without hematuria (principal); I10 Essential (primary) hypertension; I48.2 Chronic atrial fibrillation; M54.5 Low back pain; G89.29 Other chronic pain; E78.5 Hyperlipidemia, unspecified; E87.5 Hyperkalemia; K21.9 Gastro-esophageal reflux disease without esophagitis; K80.20 Calculus of gallbladder without cholecystitis without obstruction; E78.00 Pure hypercholesterolemia, unspecified; N28.1 Cyst of kidney, acquired; M10.9 Gout, unspecified; Z85.42 Personal history of malignant neoplasm of other parts of uterus; Z92.3 Personal history of irradiation
CPT/HCPCS: 80048; 82550; 83735; 85025; 95819; 97162; 99285; G0378; G8987; G8988; J0696; J7030; J7512

== ENCOUNTER → 2017-04-12 | Outpatient (CLI) | payer OTHER ==
[~2017-04-12] MED LIST changes: +AMOX250C3 PO; -ASPI81TA82 PO; -CIPR-9 PO; -HYDR-2768 PO; -LOSA100T PO; -METO25 PO; -RIVA20 PO; -SIMV10 PO; -SPIR25TA PO; -TIZA4CAP3 PO
[2017-04-12 09:10] LABS: BLOOD GAS BASE EXCESS 2.7 mmol/L (-2-2); BLOOD GAS CARBOXYHEMOGLOBIN 2.3 % (0-4); BLOOD GAS HCO3 27 mmol/L (22-26); BLOOD GAS METHEMOGLOBIN 1.2 % (0-2); BLOOD GAS O2 HGB SATURATION 93 % (90-100); BLOOD GAS OXYGEN CONTENT 16.8 Vol % (12.0-20.0); BLOOD GAS PCO2 39 mmHG (38-42); BLOOD GAS PO2 75 mmHG (61-120); BLOOD GAS TOTAL HGB 12.9 G/DL (12.0-16.0); CRITICAL VALUE NO; DRAW SITE RT RADIAL; FIO2 21 %; NUMBER OF ARTERIAL PUNCTURES 1; STAT NO; TEMP CORR TO 98.6; ULNAR PULSE PRESENT
--- NOTE | 2017-04-14 10:04 | RSPPFT ---
DATE OF PROCEDURE: 06/12/17 COMMENTS: VOLUMES DYNAMIC: FVC and FEV1 moderately reduced. STATIC: TLC, FRC normal; RV mildly increased. FLOWS: FEV1% mildly reduced; FEF 25-75 severely reduced. DIFFUSION: Mildly reduced. FLOW VOLUME LOOP: Pattern of variable intrathoracic airways obstruction. IMPRESSION: Mild to moderate obstructive ventilatory defect with a mild reduction in diffusion and increased airways resistance. There is minimal improvement post-bronchodilator.
== END ==
LOC: PHRSP 08:34
PROVIDERS: ATTEND Internal Medicine
DX: J45.909 Unspecified asthma, uncomplicated (principal); R06.02 Shortness of breath
CPT/HCPCS: 36600; 82805; 94060; 94726; 94729